=== PATIENT | male | born 1970 | race Caucasian/White ===

== ENCOUNTER 2023-05-06 04:40 | Emergency (ER) | payer MEDICAID, SELFPAY ==
[2023-05-06 04:38] VITALS: BP 113/76; PULSE 86; RESP 18; O2SAT 95; BMI 29.9
--- NOTE | 2023-05-06 04:45 | PC.NURSE ---
spoke with Leigha @ poison control. she recommended ASA,Tylenol, alcohol level, CMP, UDS and to monitor 4 hours from ingestion. notified no new orders at his time
--- NOTE | 2023-05-06 04:48 | HMH.EDGENADL ---
Discharge Plan Disposition Patient Disposition: Xfer Other Condition: Good Referrals Follow up/Referrals: Nick Moreno MD [Primary Care Provider] - See instructions Activity Restrictions/Add. Instructions Additional Instructions/Restrictions: Please follow-up with your primary care provider. Please return to the emergency department if you develop any new or worsening symptoms or become concerned for your health. Clinical Impressions Clinical Impression: Alcoholic intoxication Discharge ED Provider: Woo Terrazas General Adult HPI General Chief complaint: Alcohol Stated complaint: intoxication Time Seen by Provider: 05/06/23 04:40 Mode of Arrival: EMS Source of Information: Patient Limitations: No Limitations Description of Symptoms (Recalled from ER Triage Doc. by RN): Patient drank a large bottle of Scope mouth wash to get Drunk. History of Present Illness HPI narrative: 53-year-old male history of schizophrenia, at baseline, presents from [facility] with intoxication secondary to mouthwash and gesturing. He reports that he drank a large bottle of Scope mouthwash with the intent of getting drunk. This was confirmed by EMS, reportedly his roommate had a large bottle. Patient has slightly slurred speech. Patient was unstable with ambulation per EMS. No other reported ingestions per nursing facility EMS or patient. No active suicidal ideation. Patient reports that he is primarily worried about the antichrist. Related Data Allergies Allergy/AdvReac Type Severity Reaction Status Date / Time No Known Allergies Allergy Verified 05/06/23 04:49 [facility] Disclaimer: The information contained in this section may have been updated after the patient was seen, as this information can be updated by other users. Social History Smoking Status: Former smoker alcohol intake: current current occupational status: other Travel in the last 8 weeks: None ROS Obtained: Yes All systems reviewed & no additional complaints except as documented Physical Exam General General appearance: alert, in no apparent distress and appears intoxicated Comment: Slurred speech, unsteady gait Head Head exam: atraumatic and normocephalic Eye Eye exam: Present normal appearance, PERRL and EOMI ENT ENT exam: Present normal oropharynx, normal external ear exam and other (Patient's breath smells of minty mouthwash) Neck Neck exam: Present normal inspection and full ROM Chest Chest inspection: Present normal inspection and symmetric chest wall rise; Absent tenderness Respiratory Respiratory exam: Present normal lung sounds bilaterally; Absent respiratory distress Cardiovascular Cardiovascular exam: Present regular rate and normal rhythm Abdominal Exam Abdominal exam: Present soft; Absent distention, tenderness or guarding Extremities Exam Extremities exam: Present normal inspection; Absent edema or joint swelling Back Exam Back exam: Present normal inspection; Absent tenderness Neurological Exam Neurological exam: Present alert and oriented X3; Absent motor sensory deficit Psychiatric Psychiatric exam: Present normal affect and normal mood; Absent homicidal ideation or suicidal ideation Skin Skin exam: Present warm, dry and normal color Lymphatic Lymphatic Findings: no adenopathy Medical Decision Making Medical Records Medical records reviewed: Yes I reviewed the patient's medical records. Jarrod Inquiry Pt receiving controlled substance: No Jarrod was queried for this patient: No Vital Signs: 05/06/23 04:38 Pulse Rate [Bilateral Radial] 86 Respiratory Rate 18 Blood Pressure [Right Arm] 113/76 Blood Pressure Mean [Right Arm] 88 Blood Pressure Source [Right Arm] Automatic Cuff Blood Pressure Position [Right Arm] Supine 02 Sat by Pulse Oximetry 95 Oxygen Delivery Method Room Air Medical Decision Narrative: 53-year-old male history of schizophrenia, resident at a nursing facility presents with likely int
[2023-05-06 05:36] VITALS: BP 132/84; PULSE 81; RESP 16; O2SAT 95
[2023-05-06 06:00] VITALS: BP 118/69; PULSE 82; RESP 18; O2SAT 96
--- NOTE | 2023-05-06 06:20 | PC.NURSE ---
notified [facility] that pt was ready for discharge
--- NOTE | 2023-05-06 06:24 | PC.NURSE ---
breakfast try set up for patient. [facility] [address] contacted that pt. is ready to be picked up
[2023-05-06 06:30] VITALS: BP 119/70; PULSE 87; RESP 18; TEMP 36.7; O2SAT 96
--- NOTE | 2023-05-06 07:56 | PC.NURSE ---
[facility] update that pt needs a ride. Staff states they will be to get the pt.
== END 2023-05-06 08:48 | disposition other institution (70) ==
PROVIDERS: Emergency Provider Emergency Medicine; PCP Emergency Medicine
DX: F10.129 Alcohol abuse with intoxication, unspecified (principal)
CPT/HCPCS: 99283